=== PATIENT | male | born 1960 | race Caucasian/White ===

== ENCOUNTER 2017-01-21 08:46 | Outpatient (RCR) | payer BC, OTHER ==
[2017-02-11] MEDS ORDERED: MELO15TA39 PO (10:09)
[2017-02-11] MEDS ORDERED: MULT1TAB69 PO (10:09)
[2017-02-11] MEDS ORDERED: TAMS0.4C2 PO (10:09)
[2017-02-14] MEDS ORDERED: AMOX-358 PO (15:54)
== END 2017-04-21 | disposition home or self-care (01) ==
LOC: ONC 08:46
PROVIDERS: ATTEND Radiology Radiation Oncology
DX: C61 Malignant neoplasm of prostate (principal)
CPT/HCPCS: 76873; 99215

== ENCOUNTER 2017-02-10 20:02 | Inpatient (IN) | payer BC ==
[~2017-02-10] VITALS: Ht 194.3 cm; Wt 100.4 kg
[2017-02-10 20:50] VITALS: BP 139/83
[2017-02-10] MEDS ORDERED: PIPERACILLIN/TAZO 4.5 GM VIAL (ZOSYN) IV ONE (21:13)
[2017-02-10] MEDS ORDERED: NS (IVPB) 100 ML ONE (21:14)
[2017-02-10] MEDS ORDERED: ONDANSETRON 4 MG/2 ML (SDV) Z0FRAN IVP PRN (21:15)
[2017-02-10] MEDS ORDERED: ACETAMINOPHEN 325 MG TABLET/CAPLET (TYLENOL) PO PRN (21:15)
[2017-02-10] MEDS: LACTATED RINGERS 1,000 ML IV SCH (21:41)
[2017-02-10] MEDS: PIPERACILLIN SODIUM/TAZOBACTAM 4.5 GM in NS (IVPB) 100 ML IV SCH (21:42)
[2017-02-10] MEDS ORDERED: MELATONIN 3 MG TABLET PO ONE (21:54)
[2017-02-10] MEDS: MELATONIN 3 MG TABLET PO SCH (22:00)
[2017-02-11] VITALS (7 sets, daily range): BP systolic 120–151; BP diastolic 60–82
[2017-02-11] MEDS: fentaNYL INJECTION 100 MCG/2 ML AMP IVP PRN ×5 (00:17→20:50)
[2017-02-11] MEDS: PIPERACILLIN SODIUM/TAZOBACTAM 4.5 GM in NS (IVPB) 100 ML IV SCH ×3 (04:29→20:44)
[2017-02-11] MEDS: LACTATED RINGERS 1,000 ML IV SCH ×2 (04:36→12:33)
[2017-02-11 05:20] LABS: MEAN PLATELET VOLUME 10.2 FL (7.4-10.4); RED BLOOD COUNT 4.45 10^6/uL (4.35-5.85); RED CELL DISTRIBUTION WIDTH 13.2 % (10.0-14.5); WHITE BLOOD COUNT 7.6 10^3/uL (4.3-11.0)
[2017-02-11 05:43] LABS: ANION GAP 11 MMOL/L (5-14); BLOOD UREA NITROGEN 13 MG/DL (7-18); BUN/CREATININE RATIO 15 (0-20); CALCIUM 9.2 MG/DL (8.5-10.1); CARBON DIOXIDE 22 MMOL/L (21-32); CHLORIDE 107 MMOL/L (98-107); CREATININE SERUM 0.87 MG/DL (0.60-1.30); GFR ESTIMATED > 60; GLUCOSE 93 MG/DL (70-105); HEMOLYSIS 7 (0-29); ICTERUS 4.2 (0-1.9); LIPEMIA 3 (0-49); POTASSIUM 3.8 MMOL/L (3.6-5.0); SODIUM 140 MMOL/L (135-145)
[2017-02-11] MEDS ORDERED: MULT1TAB69 PO (10:09)
[2017-02-11] MEDS ORDERED: TAMS0.4C2 PO (10:09)
[2017-02-11] MEDS ORDERED: MELO15TA39 PO (10:09)
--- NOTE | 2017-02-11 13:03 | History & Physicial ---
History of Present Illness History of Present Illness Reason for visit/HPI confirmed complicated sigmoid diverticulitis for inpatient management Date of Admission Feb 10, 2017 at 8:39 pm Time Seen by Provider: 07:48 I consulted on this patient on 02/11/17 12:57 Attending Physician Mi Perales MD Admitting Physician Neel Roy DO Consult Allergies and Home Medications Allergies Coded Allergies: No Known Drug Allergies (Unverified , 02/10/17) Home Medications Meloxicam 15 Mg Tablet, 15 MG PO DAILY, (Reported) Multivitamin 1 Each Tablet, 1 TAB PO DAILY, (Reported) Tamsulosin HCl 0.4 Mg Cap.er.24h, 0.4 MG PO HS, (Reported) Past Lpjqaxx-Aufjes-Rilwmn Hx Patient Social History Marrital Status: Employed/Student: employed Alcohol Use: Denies Use Recreational Drug Use: No Smoking Status: Never a Smoker Physical Abuse Screen: No Sexual Abuse: No Recent Foreign Travel: No Contact w/other who traveled: No Recent Hopitalizations: No Recent Infectious Disease Expo: No Seasonal Allergies Seasonal Allergies: No Surgeries HX Surgeries: Yes Respiratory Hx Respiratory Disorders: No Cardiovascular Hx Cardiovascular Disorders: No Neurological Hx Neurological Disorders: No Reproductive System Hx Reproductive Disorders: No Genitourinary Hx Genitourinary Disorders: Yes Genitourinary Disorders: Prostate Problems Gastrointestinal Hx Gastrointestinal Disorders: Yes Gastrointestinal Disorders: Diverticulosis Musculoskeletal Musculoskeletal Disorders: Amputee, Fractures Endocrine Hx Endocrine Disorders: No HEENT HX ENT Disorders: No Hearing Impairment: Hard of Hearing Cancer Hx Cancer: Yes Cancer: Prostate Psychosocial Hx Psychiatric Problems: No Family Medical History Family Hx: Diabetes mellitus G8 BROTHER FH: kidney cancer G8 BROTHER FH: multiple sclerosis 19 MOTHER FH: suicide 19 FATHER Constitutional: fever EENTM: no symptoms reported Respiratory: no symptoms reported Cardiovascular: no symptoms reported Gastrointestinal: abdominal pain (LLQ) Genitourinary: frequency, hesitancy Musculoskeletal: joint pain Skin: no symptoms reported Psychiatric/Neurological: No Symptoms Reported Physical Exam Vital Signs Vital Sign - Last 12Hours 02/10/17 20:50 Temp 98.2 Pulse 92 Resp 18 B/P (MAP) 139/83 Pulse Ox 97 O2 Delivery Room Air Capillary Refill : General Appearance: Mild Distress HEENT: Normal ENT Inspection Neck: Normal Inspection, Supple Respiratory: Chest Non Tender, Lungs Clear Cardiovascular: Regular Rate, Rhythm Gastrointestinal: Tenderness Rectal: Deferred Back: Normal Inspection Extremity: Normal Capillary Refill Neurologic/Psychiatric: Alert, Oriented x3 Skin: Warm/Dry Comments surgical scar over the left inguinal region with no recurrence of his hernia. Localized tenderness over the left lower quadrant. Assessment/Plan Assessment and Plan gentleman with sigmoid diverticulitis and localized pneumoperitoneum. No abscess formation. No evidence of diffuse peritonitis on examination. Reasonable to treat conservatively with IV antibiotics and bowel rest. Colonoscopy from August 2016 reported to have shown diverticulosis. Prostate carcinoma pending evaluation for radical prostatectomy. With regard to diverticulitis, elective to resection using robotic technique would be reasonable. I have discussed this with the patient and his . Problems: Admission Diagnosis sigmoid diverticulitis and prostate carcinoma Clinical Quality Measures DVT/VTE Risk/Contraindication: VTE Present on Admission: No Risk Factor Score Per Nursin RFS Level Per Nursing on Admit: 2=Moderate MI PERALES MD Feb 11, 2017 1:03 pm
[2017-02-11] MEDS: ALFUZOSIN HCL 10 MG TAB (UROXATRAL) PO SCH (18:38)
[2017-02-11] MEDS: NS IV 1000 ML 1,000 ML IV SCH (20:43)
[2017-02-11] MEDS: MELATONIN 3 MG TABLET PO SCH (20:49)
[2017-02-12] MEDS: fentaNYL INJECTION 100 MCG/2 ML AMP IVP PRN ×5 (00:55→22:49)
[2017-02-12 04:20] VITALS: BP 116/69
[2017-02-12] MEDS: NS IV 1000 ML 1,000 ML IV SCH ×4 (04:40→22:43)
[2017-02-12] MEDS: PIPERACILLIN SODIUM/TAZOBACTAM 4.5 GM in NS (IVPB) 100 ML IV SCH ×3 (05:19→21:04)
[2017-02-12 08:19] VITALS: BP 125/73
[2017-02-12] MEDS: MULTIVIT W/MINERALS TAB (THERAGRAN M) PO SCH (08:38)
[2017-02-12] MEDS: MELOXICAM 7.5 MG (MOBIC) TABLET PO SCH (08:44)
--- NOTE | 2017-02-12 10:34 | Progress Note (SOAP) ---
Subjective Date Seen by Provider: Feb 12, 2017 Time Seen by Provider: 10:32 Subjective/Events-last exam left lower quadrant abdominal pain much improved. Passing flatus. Feeling hungry. Afebrile Review of Systems General: No Chills, No Night Sweats, No Fatigue, No Malaise HEENT: No Head Aches, No Eye Pain, No Ear Pain, No Dysphasia, No Sinus Congestion, No Post Nasal Drip, No Sore Throat Pulmonary: No Dyspnea, No Cough, No Pleuritic Chest Pain Cardiovascular: No: Chest Pain, Edema, Lt Headedness, Orthopnea, Palpitations, Paroxysmal Noc. Dyspnea Gastrointestinal: No: Abdominal Pain, Constipation, Diarrhea, Hematochezia, Melena, Nausea, Vomiting Genitourinary: No Dysuria, No Frequency, No Incontinence, No Hematuria, No Retention Musculoskeletal: No: arm pain, back pain, foot pain, hand pain, leg pain, neck pain, other, shoulder pain Neurological: No: Change in speech, Confusion, Incoordination, Numbness, Other , Seizures, Weakness Objective Exam Vital Signs Date Time Temp Pulse Resp B/P (MAP) Pulse Ox O2 Delivery O2 Flow Rate FiO2 02/12/17 08:19 96.9 58 18 125/73 97 Room Air 02/12/17 04:20 96.2 57 18 116/69 96 Room Air 02/11/17 23:55 97.0 73 16 137/68 96 Room Air 02/11/17 20:05 98.4 85 18 134/76 97 Room Air 02/11/17 20:00 Room Air 02/11/17 16:50 99.4 78 18 151/82 98 Room Air 02/11/17 12:06 98.2 68 18 125/73 95 Room Air I & O 02/12/17 07:00 Intake Total 5635 ml Output Total 4400 ml Balance 1235 ml Capillary Refill : General Appearance: No Apparent Distress HEENT: Normal ENT Inspection Neck: Normal Inspection Respiratory: Lungs Clear Cardiovascular: Regular Rate, Rhythm Gastrointestinal: non tender, soft Extremity: Normal Capillary Refill Neurologic/Psychiatric: Alert, Oriented x3 Skin: Warm/Dry Assessment/Plan Assessment/Plan Assess & Plan/Chief Complaint sigmoid diverticulitis with contained microperforation. Good response to IV antibiotics. Will advance diet. Possible discharge in 24-48 hours. Follow-up CT scan in a week Final Diagnosis sigmoid diverticulitis with microperforation Clinical Quality Measures DVT/VTE Risk/Contraindication: VTE Present on Admission: No Risk Factor Score Per Nursin RFS Level Per Nursing on Admit: 2=Moderate MI PERALES MD Feb 12, 2017 10:34 am
[2017-02-12 12:15] VITALS: BP 155/82
[2017-02-12 16:55] VITALS: BP 147/90
[2017-02-12] MEDS: ALFUZOSIN HCL 10 MG TAB (UROXATRAL) PO SCH (18:35)
[2017-02-12 20:50] VITALS: BP 143/82
[2017-02-12] MEDS: DIAZEPAM 5 MG (VALIUM) TABLET PO PRN (21:04)
[2017-02-12] MEDS: MELATONIN 3 MG TABLET PO SCH (21:51)
[2017-02-12 23:45] VITALS: BP 128/76
[2017-02-13 04:00] VITALS: BP 133/79
[2017-02-13] MEDS: PIPERACILLIN SODIUM/TAZOBACTAM 4.5 GM in NS (IVPB) 100 ML IV SCH ×3 (04:51→20:37)
[2017-02-13] MEDS: fentaNYL INJECTION 100 MCG/2 ML AMP IVP PRN ×4 (04:54→18:34)
[2017-02-13 08:25] VITALS: BP 130/76
[2017-02-13] MEDS: MULTIVIT W/MINERALS TAB (THERAGRAN M) PO SCH (08:47)
[2017-02-13] MEDS: NS IV 1000 ML 1,000 ML IV SCH ×2 (08:49→20:37)
[2017-02-13] MEDS: MELOXICAM 7.5 MG (MOBIC) TABLET PO SCH (08:49)
[2017-02-13 11:21] VITALS: BP 160/95
--- NOTE | 2017-02-13 12:55 | Progress Note (SOAP) ---
Subjective Date Seen by Provider: Feb 13, 2017 Time Seen by Provider: 11:40 Subjective/Events-last exam increased pain over the left lower quadrant of the abdomen. Poor appetite Review of Systems General: No Chills, No Night Sweats, No Fatigue, No Malaise HEENT: No Head Aches, No Eye Pain, No Ear Pain, No Dysphasia, No Sinus Congestion, No Post Nasal Drip, No Sore Throat Pulmonary: No Dyspnea, No Cough, No Pleuritic Chest Pain Cardiovascular: No: Chest Pain, Edema, Lt Headedness, Orthopnea, Palpitations, Paroxysmal Noc. Dyspnea Gastrointestinal: Abdominal Pain, Constipation Genitourinary: Frequency Musculoskeletal: back pain Neurological: No: Change in speech, Confusion, Incoordination, Numbness, Other , Seizures, Weakness Objective Exam Vital Signs Date Time Temp Pulse Resp B/P (MAP) Pulse Ox O2 Delivery O2 Flow Rate FiO2 02/13/17 11:21 97.6 66 18 160/95 98 Room Air 02/13/17 08:25 97.2 62 18 130/76 98 Room Air 02/13/17 04:00 97.0 58 16 133/79 97 Room Air 02/12/17 23:45 98.0 54 18 128/76 95 Room Air 02/12/17 20:50 97.6 68 18 143/82 98 Room Air 02/12/17 16:55 97.5 60 17 147/90 97 Room Air I & O 02/13/17 07:00 Intake Total 3687 ml Output Total 4975 ml Balance -1288 ml Capillary Refill : General Appearance: No Apparent Distress HEENT: Normal ENT Inspection Neck: Normal Inspection Respiratory: Lungs Clear Extremity: Normal Capillary Refill Neurologic/Psychiatric: Alert, Oriented x3 Skin: Warm/Dry Assessment/Plan Assessment/Plan Assess & Plan/Chief Complaint sigmoid diverticulitis with contained microperforation. Good response to IV antibiotics. Will advance diet. Possible discharge in 24-48 hours. Follow-up CT scan in a week sigmoid diverticulitis with contained microperforation. Increased pain. Antecolic abscess needs to be ruled out. 4 CT scan in the morning Final Diagnosis sigmoid diverticulitis Clinical Quality Measures DVT/VTE Risk/Contraindication: VTE Present on Admission: No Risk Factor Score Per Nursin RFS Level Per Nursing on Admit: 2=Moderate MI PERALES MD Feb 13, 2017 12:55 pm
[2017-02-13] MEDS: HYDROcodone/APAP 5 MG/325 MG (LORTAB) TAB PO PRN ×2 (13:07→17:29)
[2017-02-13 15:50] VITALS: BP 121/74
[2017-02-13] MEDS: ALFUZOSIN HCL 10 MG TAB (UROXATRAL) PO SCH (17:29)
[2017-02-13 19:40] VITALS: BP 145/87
[2017-02-13] MEDS: DIAZEPAM 5 MG (VALIUM) TABLET PO PRN (20:37)
[2017-02-13] MEDS: MELATONIN 3 MG TABLET PO SCH (20:37)
[2017-02-14] VITALS: BP 131/80
[2017-02-14 04:00] VITALS: BP 131/77
[2017-02-14] MEDS: PIPERACILLIN SODIUM/TAZOBACTAM 4.5 GM in NS (IVPB) 100 ML IV SCH ×2 (05:11→13:48)
[2017-02-14] MEDS ORDERED: NS 100 ML (IVPB) BAG IV ONE (07:00)
[2017-02-14] MEDS ORDERED: IOHEXOL 350 MG/ML 100 ML (OMNIPAQUE 350) VIAL IV ONE (07:00)
[2017-02-14 08:00] VITALS: BP 172/89
--- NOTE | 2017-02-14 09:30 | Diagnostic Imaging Report ---
PROCEDURE: CT abdomen and pelvis with contrast. TECHNIQUE: Multiple contiguous axial images were obtained through the abdomen and pelvis after administration of intravenous contrast. INDICATION: Left lower quadrant pain. Prostate cancer. CONTRAST: 100 mL of Omnipaque 350 was administered intravenously. FINDINGS: There are bilateral small pleural effusions with minimal atelectasis in the lung bases. The liver demonstrates multiple hypodense lesions with the largest being 2.2 cm in the right hepatic lobe with features of a simple cyst. Other lesions are smaller in size and not accurately characterized. These are probably also cysts. A followup exam is recommended. The spleen is enlarged measuring 15 x 5.7 x 14.4 cm in size. The pancreas, adrenals, and gallbladder appear unremarkable. The kidneys have symmetric enhancement and contrast excretion. There is no hydronephrosis. The urinary bladder appears mildly distended. Its inferior border is lobulated which appears to relate to the median lobe of the prostate projecting into the bladder. It is slightly irregular, however. The prostate is measuring 6.5 cm in transverse dimension demonstrating significant enlargement. There is prominent diverticulosis. No diverticulitis. There is thickening in the sigmoid colon, probably related to underdistention, with no surrounding inflammatory changes seen. Mild nonspecific colitis could be considered. The appendix is normal. There is a small fat-containing superior periumbilical hernia. The abdominal aorta is normal in caliber. No periaortic significantly enlarged lymph nodes are seen. There is scarring in the right groin area, correlate with prior surgical or trauma history. There is a small indirect right inguinal hernia with a small amount of herniating fat and adjacent fluid seen in the mildly distended right inguinal canal. The osseous structures demonstrate mild degenerative changes in the lower lumbar spine and SI joints. No sclerotic bone lesions to suggest metastasis. IMPRESSION: 1. There is diverticulosis without evidence of diverticulitis. Nonspecific mild colitis could be present, however, based on the slight apparent thickening of the colonic folds. Correlate clinically and with colonoscopy as indicated. 2. Multiple hepatic lesions are seen, mostly too small to characterize. A dominant right hepatic lobe lesion is a cyst. Followup studies are recommended. 3. Splenomegaly. 4. Fat-containing superior periumbilical hernia. 5. Small indirect right inguinal hernia. 6. Significant enlargement of the prostate gland projecting into the inferior wall of the urinary bladder. No significantly enlarged lymph nodes in the abdomen or pelvis are seen. Dictated by: Dictated on workstation # [id number]
[2017-02-14] MEDS: NS IV 1000 ML 1,000 ML IV SCH (10:09)
[2017-02-14] MEDS: MULTIVIT W/MINERALS TAB (THERAGRAN M) PO SCH (10:30)
[2017-02-14] MEDS: MELOXICAM 7.5 MG (MOBIC) TABLET PO SCH (10:30)
[2017-02-14] MEDS ORDERED: CATHETER FLUSH 10 ML SYR IV PRN (11:00)
[2017-02-14 12:34] VITALS: BP 138/82
[2017-02-14] MEDS ORDERED: fentaNYL INJECTION 100 MCG/2 ML AMP IVP PRN (13:15)
[2017-02-14] MEDS ORDERED: CATHETER FLUSH 10 ML SYR IV SCH (14:00)
[2017-02-14] MEDS ORDERED: AMOX-358 PO (15:54)
--- NOTE | 2017-02-14 17:33 | Progress Note (SOAP) ---
Subjective Date Seen by Provider: Feb 14, 2017 Time Seen by Provider: 15:29 Subjective/Events-last exam Has had bowel movements. Left lower quadrant abdominal pain improved. CT scan negative for any abscess;no pneumoperitoneum. Enlarged prostate consistent with diagnosed prostatic carcinoma Review of Systems General: No Chills, No Night Sweats, No Fatigue, No Malaise HEENT: No Head Aches, No Eye Pain, No Ear Pain, No Dysphasia, No Sinus Congestion, No Post Nasal Drip, No Sore Throat Pulmonary: No Dyspnea, No Cough, No Pleuritic Chest Pain Cardiovascular: No: Chest Pain, Edema, Lt Headedness, Orthopnea, Palpitations, Paroxysmal Noc. Dyspnea Gastrointestinal: No: Abdominal Pain, Constipation, Diarrhea, Hematochezia, Melena, Nausea, Vomiting Genitourinary: Frequency Musculoskeletal: back pain Neurological: No: Change in speech, Confusion, Incoordination, Numbness, Other , Seizures, Weakness Objective Exam Vital Signs Date Time Temp Pulse Resp B/P (MAP) Pulse Ox O2 Delivery O2 Flow Rate FiO2 02/14/17 12:34 96.6 60 20 138/82 100 Room Air 02/14/17 08:00 97.3 51 20 172/89 99 Room Air 02/14/17 04:00 95.8 58 18 131/77 97 Room Air 02/14/17 00:00 96.0 52 16 131/80 98 Room Air 02/13/17 19:40 97.0 55 20 145/87 98 Room Air I & O 02/14/17 07:00 Intake Total 2790 ml Output Total 3900 ml Balance -1110 ml Capillary Refill : General Appearance: No Apparent Distress HEENT: Normal ENT Inspection Neck: Normal Inspection Respiratory: Lungs Clear Cardiovascular: Regular Rate, Rhythm Gastrointestinal: non tender, soft Neurologic/Psychiatric: Oriented x3 Skin: Warm/Dry Assessment/Plan Assessment/Plan Assess & Plan/Chief Complaint sigmoid diverticulitis with contained microperforation. Good response to IV antibiotics. Will advance diet. Possible discharge in 24-48 hours. Follow-up CT scan in a week sigmoid diverticulitis with contained microperforation. Increased pain. Antecolic abscess needs to be ruled out. 4 CT scan in the morning 02/14/17: Gentleman with resolved sigmoid diverticulitis. No pericolic abscess. Prostatic carcinoma. Would be discharged home on oral antibiotics. Follow- up in 10 days. Elective sigmoid resection once prostatic carcinoma is addressed Final Diagnosis Sigmoid diverticulitis. Prostatic carcinoma Clinical Quality Measures DVT/VTE Risk/Contraindication: VTE Present on Admission: No Risk Factor Score Per Nursin RFS Level Per Nursing on Admit: 2=Moderate MI PERALES MD Feb 14, 2017 17:33
[2017-02-14 17:35] VITALS: BP 138/82
--- NOTE | 2017-02-15 06:31 | DISCHARGE SUMMARY ---
DATE OF SERVICE: 02/14/2017 DIAGNOSES: 1. Sigmoid diverticulitis. 2. Prostatic carcinoma. This gentleman was admitted with sigmoid diverticulitis, complicated by localized microperforation. He has been managed nonoperatively and he has responded very well. A followup CT scan is negative for any pericolic abscess. He has been discharged home on oral Augmentin with instruction to return for a followup in 10 days. It is anticipated that he will undergo robotic-assisted radical prostatectomy within a next 2 or 3 weeks. Subsequently, he will be re-evaluated for consideration of an elective sigmoid resection, possibly using robotic assistance itself. I have indicated to the patient and his that it is not desirable to plan concomitant prostatectomy and sigmoid resection. Job ID: [id number] DocumentID: [id number] Dictated Date: 02/14/2017 17:33:34 Spinning Machine Tender Date: 02/15/2017 03:47:20 Dictated By: MI PERALES MD MTDD
--- OUTSIDE RECORDS SUMMARY | 2017-02-16 09:23 | XMS REPORT | Continuity of Care Document ---
Author Author [facility] Organization [facility] Address Unknown Phone Unavailable Care Team Providers Care Flight Operations Coordinator Name Role Phone PCP Unavailable Source Comments Some departments are not documenting in the electronic medical record. If you do not see the information that you expected, contact Release of Information in the Health Information Management department at [phone] for further assistance in locating additional records.[facility] Active Allergies and Adverse Reactions No Known Allergies Current Medications Prescription Sig. Disp. Refills Start End Date Status Date amoxicillin/K clavulanate Take 1 Tab by mouth every Active (AUGMENTIN) 875/125 mg 12 hours. Take with food. tablet tamsulosin (FLOMAX) 0.4 Take 0.4 mg by mouth Active mg capsule daily. Do not crush, chew or open capsules. Take 30 minutes following the same meal each day. meloxicam (MOBIC) 15 mg Take 15 mg by mouth Active tablet daily. MULTIVITAMIN PO Take by mouth. Active cholecalciferol (VITAMIN Take 1,000 Units by mouth Active D-3) 1,000 units tablet daily. ASCORBATE CALCIUM Take by mouth. Active (VITAMIN C PO) other medication Take 1 Dose by mouth. Active Medication Name & Strength:kombucha Dose(how many): 8oz-16oz Frequency(how often): daily Active Problems Problem Noted Date Elevated PSA 02/15/2017 Prostate cancer (HCC) 02/15/2017 Overview: 10/31/16 PSA 10.4 12/21/16 Transrectal ultrasound and prostate needle biopsy: Dr. Barry Pathology: Diagnosis: 1. Right lateral base: A. Prostatic adenocarcinoma (50% of biopsy material) Gabriel score of 3+4=7 2. Right base prostate: A. Prostatic adenocarcinoma (30% of biopsy material) Gabriel score of 3+3=6 3. Right lateral mid: A. Focal prostate adenocarcinoma (5% of biopsy material) [place] score 3+3=6 4. Right mid prostate: benign prostate tissue 5. Right lateral apex: benign prostate tissue 6. Right apex: benign prostate tissue with focal mild acute and chronic inflammation 7. Left lateral base: benign prostate tissue 8. Left base: benign prostate tissue 9. Left lateral mid: benign prostate tissue 10. Left mid: benign prostate tissue 11. Left lateral apex: benign prostate tissue 12. Left apex: benign prostate tissue 01/10/17 PSA 6.11 01/10/17 Radiation Oncology Consult 01/10/17 Urology Consult 01/10/17 Testicular US: Epididymal cyst and small hydrocele 01/11/17 Bone Scan: Degenerative changes of the left knee. Otherwise unremarkable 01/11/17 MRI Pelvis: 1. Prostate measurements as in report. There is no evidence of extracapsular spreade of disease 2. Hypertrophy of the central zone of the prostate with mass effect on the base of the bladder. 3. Cyst with fluid level in the left seminal vesicle. 01/12/17 MR Lumbar Spine 1. No evidence of bony metastatic disease 2. Degenerative changes 3. Findings that can be seen with interspinous ligamentous/muscular sprain 4. 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 Surgery (RRP, RALP) Radiation (XRT, BrachyTx) Cryoablation High Intensity Focused Ultrasound (HIFU) Androgen Deprivation Tx (ADT) Active surveillance () Risks and complications of surgery, especially stress incontinence and erectile dysfunction reviewed in detail. Differences between robotic prostatectomy and radical retropubic prostatectomy reviewed. Typical benefit of robotic prostatectomy include less blood loss and shorter hospital stay, but otherwise results are similar in regards to oncologic outcome, stress incontinence and erectile dysfunction compared to retropubic prostatectomy. Risks and complications of radiation, reviewed. Possible benefits of , including avoidance of side effects, complications, & potentially over treatment reviewed in detail, compared to possibility progression of disease & missing a window of curability. recommendations & protocol reviewed. After careful consideration, the patient would like to think about his options and call back after he determines what he would like to do. Most Recent Encounters Date Type Specialty Providers Description 02/15/2017 Office Visit Urology Shaun Lr MD Prostate cancer (HCC) (Primary Dx) 02/10/2017 Ancillary Radiology Outpatient, Radiologist Diagnosis unknown Orders (Primary Dx) 02/08/2017 Documentation Cardiothoracic Surgery Jessie Mcdermott 01/12/2017 Hospital Radiology Encounter 01/11/2017 Hospital Radiology Encounter 01/11/2017 Hospital Radiology Encounter 01/11/2017 Hospital Radiology Encounter 01/10/2017 Hospital Radiology Encounter 12/31/2016 Telephone Oncology Shaun Lr MD Navigation Assessment Social History Tobacco Use Types Packs/Day Years Used Date Never Assessed Last Filed Vital Signs Vital Sign Reading Time Taken Blood Pressure 160/88 02/15/2017 1:26 PM CDT Pulse 68 02/15/2017 1:26 PM CDT Temperature - - Respiratory Rate - - Height 1.956 m (6' 5") 02/15/2017 1:26 PM CDT Weight 105.325 kg (232 lb 3.2 02/15/2017 1:26 PM CDT oz) Body Mass Index 27.53 02/15/2017 1:26 PM CDT Oxygen Saturation - - Plan of Care Health Maintenance Due Date Last Done Comments Hepatitis C Screening 1961 Physical (Comprehensive) 1968 Exam Pertussis Vaccine 1972 Tetanus Vaccine 1978 Colorectal Cancer 2011 Screening Influenza Vaccine 04/29/2017 Results from Last 3 Months * MRI L-SPINE EXTERNAL IMAGING (01/12/2017) Narrative This order has been auto finalized and does not contain a result. * NM BONE SCAN EXTERNAL IMAGING (01/11/2017 12:30 AM) Narrative This order has been auto finalized and does not contain a result. * MRI PELVIS EXTERNAL IMAGING (01/11/2017 12:15 AM) Narrative This order has been auto finalized and does not contain a result. * GENERAL RAD HEAD EXTERNAL IMAGING (01/11/2017) Narrative This order has been auto finalized and does not contain a result. * US SCROTUM EXTERNAL IMAGING (01/10/2017) Narrative This order has been auto finalized and does not contain a result.
--- OUTSIDE RECORDS SUMMARY | 2017-02-16 09:24 | XMS REPORT | Continuity of Care Document ---
Author Author [facility] Organization [facility] Address Unknown Phone Unavailable Care Team Providers Care Copying Machine Repairer Name Role Phone PCP Unavailable Source Comments Some departments are not documenting in the electronic medical record. If you do not see the information that you expected, contact Release of Information in the Health Information Management department at [phone] for further assistance in locating additional records.[facility] Active Allergies and Adverse Reactions No Known [...] Focal prostate adenocarcinoma (5% of biopsy material) [place] score 3+3=6 4. Right mid prostate: benign [...] (Primary Dx) 02/08/2017 Documentation Cardiothoracic Surgery Jessie Mcdermtot 01/12/2017 Hospital Radiology Encounter 01/11/2017 Hospital Radiology [...]
== END 2017-02-14 16:35 | disposition home or self-care (01) | DRG 392 ==
LOC: UNDOADMIN 20:02 → 4TH 20:02
PROVIDERS: ADMIT Surgery; ATTEND Surgery
DX: K57.20 Diverticulitis of large intestine with perforation and abscess without bleeding (principal); C61 Malignant neoplasm of prostate; H91.90 Unspecified hearing loss, unspecified ear
CPT/HCPCS: 36415; 74177; 80048; 85027